=== PATIENT | male | born 1970 | race Caucasian/White ===

== ENCOUNTER 2016-12-13 17:16 | Emergency (ER) | payer OTHER ==
[~2016-12-13] VITALS: Ht 177.8 cm; Wt 81.6 kg
[2016-12-13 17:16] VITALS: BP 129/93
== END 2016-12-13 18:28 | disposition home or self-care (01) ==
LOC: ER 17:25
DX: R21 Rash and other nonspecific skin eruption (principal)
CPT/HCPCS: 99282; A4606; Z7610

== ENCOUNTER 2017-04-30 05:14 | Emergency (ER) | payer BC, OTHER ==
[~2017-04-30] VITALS: Ht 177.8 cm; Wt 79.4 kg
--- NOTE | 2017-04-30 06:04 | NUR ---
PT BIBSELF C/O LEFT SIDED ABDOMINAL PAIN X 1 DAY. 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 PT AOX3 RR EVEN AND UNLABORED. NO SOB NOTED. NAD NOTED. NO NVD AT THIS TIME. PT GOWNED AND PLACED ON MONITOR WAITING FOR MD [place]KE. URINE COLLECTED. CALLED LAB FOR PERCH MACHINE INSPECTOR.
--- NOTE | 2017-04-30 06:23 | NUR ---
DR. RIBERA AT BEDSIDE FOR EVAL.
--- NOTE | 2017-04-30 06:30 | NUR ---
CALLED LAB FOR BLOOD DRAW / FIRE OFFICIAL.
--- NOTE | 2017-04-30 06:50 | NUR ---
LAB AT BEDSIDE FOR BLOOD DRAW
[2017-04-30 07:06] LABS: APPEARANCE,URINE CLEAR (CLEAR); BILIRUBIN,URINE NEGATIVE (NEGATIVE); BLOOD, URINE NEGATIVE Ery/uL (NEGATIVE); COLOR,URINE YELLOW (YELLOW); KETONES,URINE NEGATIVE (NEGATIVE); LEUKOCYTE ESTERASE ,URINE NEGATIVE (NEGATIVE); NITRITE, URINE NEGATIVE (NEGATIVE); PROTEIN,URINE NEGATIVE (NEGATIVE); UGLUCOSE NEGATIVE (NEGATIVE); UROBILINOGEN,URINE 0.2 EU/dL (0.2)
--- NOTE | 2017-04-30 07:07 | NUR ---
REPORT GIVEN TO JAIRO CASTRO FOR CONTINUATION OF CARE.
--- NOTE | 2017-04-30 07:08 | NUR ---
RECEIVED REPORT FOR BEATA.
[2017-04-30 07:14] LABS: CALCIUM, SERUM 8.6 mg/dL (8.5-10.1); CREATININE 0.9 mg/dL (0.6-1.3)
[2017-04-30 07:24] LABS: ALBUMIN 3.5 g/dL (3.4-5.0); BILIRUBIN,DIRECT 0.1 mg/dL (0.0-0.2); BILIRUBIN,TOTAL 0.4 mg/dL (0.2-1.0); TOTAL PROTEIN, SERUM 7.2 g/dL (6.4-8.2)
[2017-04-30 07:34] LABS: BASOPHILS % (AUTO) 0.3 % (0.0-2.0); EOSINOPHILS # (AUTO) 0.1 /CMM (0.0-0.7); EOSINOPHILS % (AUTO) 1.7 % (0.0-6.0); HEMATOCRIT 41 % (39-51); LYMPHOCYTES % (AUTO) 22.6 % (20.0-44.0); MEAN CORPUSCULAR HEMOGLOBIN 30 PG (26.0-33.0); MEAN CORPUSCULAR HGB CONC 34 g/dl (31.0-36.0); MEAN CORPUSCULAR VOLUME 89 fL (80-96); MONOCYTES # (AUTO) 0.7 /CMM (0.1-1.30); MONOCYTES % (AUTO) 7.7 % (2.0-12.0); NEUTROPHILS # (AUTO) 5.8 /CMM (1.8-8.9); NEUTROPHILS % (AUTO) 67.7 % (43.0-81.0); PLATELET COUNT (AUTO) 228 /CMM (150-450); RDW COEFFICIENT OF VARIATION 13.3 (11.5-15.0); RED BLOOD CELL COUNT(AUTO) 4.64 MIL/uL (4.5-6.0); WHITE BLOOD COUNT (AUTO) 8.6 K/uL (4.3-11.0)
--- NOTE | 2017-04-30 08:17 | NUR ---
Garland sanchez in [facility] - 04/30/17 at 0819 by DEBORAH TELE 112.2
[2017-04-30 08:18] VITALS: BP 135/73
--- NOTE | 2017-04-30 08:18 | NUR ---
Patient discharged to home in stable condition. Written and verbal after care instructions given. Patient verbalizes understanding of instruction.
== END 2017-04-30 08:18 | disposition home or self-care (01) ==
LOC: ER 05:16
DX: R10.32 Left lower quadrant pain (principal); I49.9 Cardiac arrhythmia, unspecified
CPT/HCPCS: 36415; 71045-TC; 80048-TC; 80076-TC; 81000-TC; 83690-TC; 85025-TC; A4606; Z7610

== ENCOUNTER 2017-05-31 11:15 | Inpatient (IN) | payer BC, OTHER ==
[~2017-05-31] VITALS: Ht 177.8 cm; Wt 81.6 kg
--- NOTE | 2017-05-31 11:15 | NUR ---
BBRA 78 FROM HOME WITNESSED PT HANG HIMSELF USING DOG LEASH ON CLOSET, FOR 30 SECONDS. DENIES KO. DENIES SI AT THIS TIME. C/O NECK PAIN, NAD NOTED, VSS, RESP EVEN AND UNLABORED, PT PUT ON MONITOR, WAITING FOR MD LAKE.
--- NOTE | 2017-05-31 11:30 | NUR ---
URINE SENT TO LAB.
--- NOTE | 2017-05-31 11:48 | NUR ---
IV STARTED ON LAC 20G, BLOOD SAMPLE SENT TO LAB.
[2017-05-31 11:49] LABS: BASOPHILS # (AUTO) 0.1 /CMM (0.0-0.2); BASOPHILS % (AUTO) 0.6 % (0.0-2.0); EOSINOPHILS % (AUTO) 1.2 % (0.0-6.0); HEMATOCRIT 47 % (39-51); HEMOGLOBIN 15.9 g/dL (13.5-17.5); LYMPHOCYTES # (AUTO) 1.9 /CMM (0.8-4.8); LYMPHOCYTES % (AUTO) 20.2 % (20.0-44.0); MEAN CORPUSCULAR HGB CONC 34 g/dl (31.0-36.0); MEAN CORPUSCULAR VOLUME 88 fL (80-96); MONOCYTES # (AUTO) 0.7 /CMM (0.1-1.30); MONOCYTES % (AUTO) 7.8 % (2.0-12.0); NEUTROPHILS # (AUTO) 6.8 /CMM (1.8-8.9); NEUTROPHILS % (AUTO) 70.2 % (43.0-81.0); PLATELET COUNT (AUTO) 256 /CMM (150-450); RDW COEFFICIENT OF VARIATION 12.4 (11.5-15.0); RED BLOOD CELL COUNT(AUTO) 5.35 MIL/uL (4.5-6.0); WHITE BLOOD COUNT (AUTO) 9.6 K/uL (4.3-11.0)
[2017-05-31 11:51] LABS: APPEARANCE,URINE Clear (CLEAR); BILIRUBIN,URINE Negative (NEGATIVE); BLOOD, URINE Negative Ery/uL (NEGATIVE); COLOR,URINE Dark (YELLOW); KETONES,URINE Negative (NEGATIVE); LEUKOCYTE ESTERASE ,URINE Negative (NEGATIVE); NITRITE, URINE Negative (NEGATIVE); PH,URINE 5.5 (5.0-8.0); PROTEIN,URINE 30 mg/dl (NEGATIVE); UGLUCOSE Negative (NEGATIVE); UROBILINOGEN,URINE 0.2 EU/dL (0.2)
[2017-05-31 12:01] LABS: CALCIUM, SERUM 9.1 mg/dL (8.5-10.1); CARBON DIOXIDE 30 mmol/L (21-32); CHLORIDE 106 mmol/L (98-107); GLUCOSE 113 mg/dL (74-106); POTASSIUM 3.8 mmol/L (3.5-5.1); SODIUM SERUM 142 mmol/L (136-145); UREA NITROGEN, BLOOD 17 mg/dL (7-18)
[2017-05-31 12:03] LABS: INR 0.94 (0.85-1.15)
[2017-05-31 12:04] LABS: BACTERIA,URINE Rare /HPF (None Seen); RBC,URINE NONE SEEN /HPF (0-2); SQUAMOUS EPITHELIAL CELL,UR Rare /HPF (None Seen); WBC,URINE 0-2 /HPF (0-3)
[2017-05-31 12:06] LABS: ALANINE AMINOTRANSFERASE 26 U/L (12-78); ALCOHOL, BLOOD < 3 mg/dL (0-0); ALKALINE PHOSPHATASE 72 U/L (46-116); ASPARTATE AMINOTRANSFERASE 22 U/L (15-37); BILIRUBIN,DIRECT 0.2 mg/dL (0.0-0.2); BILIRUBIN,TOTAL 0.9 mg/dL (0.2-1.0); TOTAL PROTEIN, SERUM 7.8 g/dL (6.4-8.2)
[2017-05-31 12:10] LABS: SALICYLATE 0.7 mg/dL (2.8-20.0)
[2017-05-31 12:11] LABS: ACETAMINOPHEN 0 ug/ml (10-30)
[2017-05-31 12:14] LABS: TROPONIN I < 0.017 ng/mL (0.00-0.056)
--- NOTE | 2017-05-31 12:22 | NUR ---
CALLED [employer] E LEARNING DEVELOPER WAS PAGED.
[2017-05-31] MEDS ORDERED: ONDANSETRON HCL/PF 4 MG/2 ML VIAL IVP PRN (12:30)
[2017-05-31] MEDS ORDERED: MAGNESIUM HYDROXIDE 30 ML UDC PO PRN (12:30)
[2017-05-31] MEDS ORDERED: MAG HYDROX/AL HYDROX/SIMETH 30 ML UDC PO PRN (12:30)
[2017-05-31] MEDS ORDERED: Z GUARD REMEDY 2 OZ OINT TP PRN (12:30)
[2017-05-31] MEDS ORDERED: HYDROCODONE/APAP 5/325MG 1 EACH TABLET PO PRN (12:30)
--- NOTE | 2017-05-31 13:10 | NUR ---
REPORT GIVEN TO HELENA CASTRO FOR BEATA
--- NOTE | 2017-05-31 13:30 | NUR ---
DRUG INSPECTOR NOTES RECEIVED PT FROM E.R. STAFF VIA [facility], AWAKE AND ALERT, ABLE TO WALK TO BED WITH STEADY GAIT, ASSISTED TO BED, MADE COMFORTABLE, ROOM SET UP ORIENTATION PROVIDED TO PT, VERBALIZED UNDERSTANDING, WITH COMPLAINT OF SLIGHT PAIN AT THE NECK AREA, BREATHING PATTERN NORMAL, PT REPORTS NO SWALLOWING PROBLEM, SITTER AT BEDSIDE, SAFETY PRECAUTIONS OBSERVED.
[2017-05-31] MEDS: ACETAMINOPHEN 325 MG TABLET PO PRN ×2 (15:27→22:21)
[2017-05-31 16:00] VITALS: BP 102/68
--- NOTE | 2017-05-31 18:40 | NUR ---
PEDIATRIC CRITICAL CARE NURSE NOTES PT IN BED, AWAKE, ALERT AND ORIENTED, NO COMPLAINT OF PAIN, BREATHING PATTERN NORMAL AND NOT LABORED, RADHA AT BEDSIDE, PT SEEN BY DR. HOOD, PLAN OF CARE DISCUSSED WITH PT, VERBALIZED UNDERSTANDING, SITTER AT BEDSIDE, SAFETY PRECAUTIONS OBSERVED.
[2017-05-31 20:00] VITALS: BP 117/70
[2017-06-01] VITALS: BP 109/62
[2017-06-01 04:00] VITALS: BP 111/73
--- NOTE | 2017-06-01 06:38 | NUR ---
PLASTER FOREMAN NOTES AWAKE & RESPONSIVE. NOT IN ANY DISTRESS. NO SOB NOTED. DENIES ANY PAIN OR DISCOMFORT AT THIS TIME. ON TELE SB @ 58 WITH IV-HL PATENT & INTACT. MONITORED ACCORDINGLY. WITH SITTER @ BEDSIDE. CALL LIGHT WITHIN REACH. BED IN LOWEST POSITION. SR UP X 2 FOR SAFETY. WILL ENDORSE TO NEXT SHIFT.
[2017-06-01 07:28] LABS: BASOPHILS % (AUTO) 0.2 % (0.0-2.0); EOSINOPHILS % (AUTO) 1.5 % (0.0-6.0); HEMATOCRIT 42 % (39-51); HEMOGLOBIN 14.7 g/dL (13.5-17.5); LYMPHOCYTES % (AUTO) 20.4 % (20.0-44.0); MEAN CORPUSCULAR HGB CONC 35 g/dl (31.0-36.0); MEAN CORPUSCULAR VOLUME 88 fL (80-96); MONOCYTES # (AUTO) 0.7 /CMM (0.1-1.30); MONOCYTES % (AUTO) 7.6 % (2.0-12.0); NEUTROPHILS # (AUTO) 6.8 /CMM (1.8-8.9); NEUTROPHILS % (AUTO) 70.3 % (43.0-81.0); PLATELET COUNT (AUTO) 255 /CMM (150-450); RDW COEFFICIENT OF VARIATION 13.3 (11.5-15.0); RED BLOOD CELL COUNT(AUTO) 4.83 MIL/uL (4.5-6.0); WHITE BLOOD COUNT (AUTO) 9.6 K/uL (4.3-11.0)
[2017-06-01 07:34] LABS: CALCIUM, SERUM 9.1 mg/dL (8.5-10.1); MAGNESIUM 2.1 mg/dL (1.8-2.4); PHOSPHORUS 3.7 mg/dL (2.5-4.9)
--- NOTE | 2017-06-01 07:35 | NUR ---
REBRANDER OPENING NOTES RECEIVED PATIENT IN BED SLEEPING BUT EASILY AROUSABLE AND VERBALLY RESPONSIVE, RESPIRATIONS EVEN AND UNLABORED, ABLE TO MAKE NEEDS KNOWN, NO COMPLAINTS OF PAIN OR DISCOMFORT, IV SITE TO LEFT AC 20GUAGE, ON PORTFOLIO MGR [place] 55-58. SITTER AT BEDSIDE, SAFETY MEASURES IN PLACE, CALL LIGHT KEPT WITHIN REACH, WILL CONTINUE TO MONITOR.
[2017-06-01 11:12] VITALS: BP 128/76
--- NOTE | 2017-06-01 11:41 | NUR ---
RN NOTES SEEN BY [facility] BUS AND TROLLEY DISPATCHER , PER CLINICIAN CLEARED OKAY TO DISCHARGE , DR HOOD AWARE AWAITING ORDERS.
--- NOTE | 2017-06-01 11:45 | NUR ---
RN MS NOTES SEEN BY [facility] FOR PSYCH CONSULT, NO DISCHARGE AT THIS TIME, WILL CALL CRISIS TEAM TO EVALUATE, PATIENT REMAINS IN BED, SITTER 1:1 AT BEDSIDE. WILL CONTINUE TO MONITOR. PATIENT COMFORTABLE AT THIS TIME.
--- NOTE | 2017-06-01 15:30 | NUR ---
RN NOTES PATIENT WAS CLEARED BY FABRICATION WELDER FOR DISCHARGE DR. HOOD AWARE WITH ORDER. DISCHARGE INSTRUCTIONS PROVIDED , BELONGINGS LIST DONE, PT VERBALIZES HE UNDERSTANDS. IV AND ID BAND REMOVED, NO BLEEDING TO IV SITE, PATIENT WILL PICK HIM UP ASA STATED BY PATIENT. ACCOMPANIED TO DISCHARGE , PT LEFT IN STABLE CONDITION .
== END 2017-06-01 15:20 | disposition home or self-care (01) | DRG 923 ==
LOC: ER 11:15 → TELE1 13:06 → TELE 13:08 → MED 06-01 08:32
PROVIDERS: ADMIT Internal Medicine; ATTEND Internal Medicine
DX: T71.164A Asphyxiation due to hanging, undetermined, initial encounter (principal); F17.200 Nicotine dependence, unspecified, uncomplicated; F29 Unspecified psychosis not due to a substance or known physiological condition; F32.9 Major depressive disorder, single episode, unspecified; I78.8 Other diseases of capillaries; F43.21 Adjustment disorder with depressed mood
CPT/HCPCS: 36415; 70450-TC; 71045-TC; 72125-TC; 80048-TC; 80076-TC; 80305; 81000-TC; 83735-TC; 84100-TC; 84484-TC; 85025-TC; 85730-TC; 87081-TC; A4606; G0480; Z7610